=== PATIENT | male | born 1990 | race Two or more races ===

== ENCOUNTER 2020-11-18 14:29 | Emergency (ER) | payer BC ==
[~2020-11-18] VITALS: Ht 188 cm; Wt 90.7 kg
--- NOTE | 2020-11-18 14:29 | NUR ---
PT BIBIRA 89 FROM WORK C/O CHEST TIGHTNESS AROUND 1PM. PT IS AAOX4, NOT IN RESPRIATORY DISTRESS, HOOKED TO CADDY MASTER, KEPT RESTED AND COMFORTABLE. WILL CONTINUE TO MONITOR.
--- NOTE | 2020-11-18 14:42 | NUR ---
SEEN AND EXAMINED BY .
--- NOTE | 2020-11-18 14:45 | NUR ---
IV LINE ESTABLISHED BLOOD DRAWN AND SENT TO LAB
[2020-11-18 15:02] LABS: BASOPHILS % (AUTO) 0.1 % (0.0-2.0); EOSINOPHILS % (AUTO) 0.4 % (0.0-6.0); HEMATOCRIT 44 % (39-51); LYMPHOCYTES # (AUTO) 1.4 /CMM (0.8-4.8); MEAN CORPUSCULAR HGB CONC 34 g/dl (31.0-36.0); MEAN CORPUSCULAR VOLUME 90 fL (80-96); MONOCYTES # (AUTO) 0.4 /CMM (0.1-1.30); MONOCYTES % (AUTO) 4.4 % (2.0-12.0); NEUTROPHILS % (AUTO) 79.1 % (43.0-81.0); PLATELET COUNT (AUTO) 278 /CMM (150-450); RED BLOOD CELL COUNT(AUTO) 4.85 MIL/uL (4.5-6.0); WHITE BLOOD COUNT (AUTO) 8.8 K/uL (4.3-11.0)
[2020-11-18 15:09] LABS: CALCIUM, SERUM 9.1 mg/dL (8.5-10.1); CARBON DIOXIDE 26 mmol/L (21-32); CHLORIDE 103 mmol/L (98-107); CREATININE 1.1 mg/dL (0.6-1.3); GLUCOSE 124 mg/dL (74-106); POTASSIUM 3.8 mmol/L (3.5-5.1); SODIUM SERUM 138 mmol/L (136-145); UREA NITROGEN, BLOOD 14 mg/dL (7-18)
[2020-11-18 16:34] VITALS: BP 145/71
--- NOTE | 2020-11-18 16:35 | NUR ---
Patient discharged to home in stable condition. Written and verbal after care instructions given. Patient verbalizes understanding of instruction.IV removed. Catheter intact and site benign. Pressure and 4x4 applied to site. No bleeding noted.
== END 2020-11-18 16:35 | disposition home or self-care (01) ==
LOC: ER 14:36
DX: F45.8 Other somatoform disorders (principal); R00.2 Palpitations; I10 Essential (primary) hypertension
CPT/HCPCS: 36415; 71045-TC; 80048-TC; 84484-TC; 85025-TC